=== PATIENT | female | born 1945 ===

== ENCOUNTER 2025-05-11 10:45 | Emergency (ER) | payer OTHER ==
[~2025-05-11] VITALS: Ht 152.4 cm; Wt 60.8 kg
[2025-05-11] MEDS ORDERED: ATACAND4 MG PO (11:02)
== END 2025-05-11 11:00 | disposition left against medical advice (07) ==
LOC: ER 10:45
DX: Z53.21 Procedure and treatment not carried out due to patient leaving prior to being seen by health care provider (principal)